=== PATIENT | male | born 2000 | race Caucasian/White ===

== ENCOUNTER 2025-03-30 23:19 | Emergency (ER) | payer SELFPAY ==
[2025-03-30] MEDS: Ziprasidone IM 20 MG/ML VIAL IM (23:28)
[2025-03-30 23:30] VITALS: BP 125/70; PULSE 113; RESP 16; TEMP 36.6; O2SAT 100; BMI 21.1
[2025-03-31 00:19] LABS: Absolute Lymphocyte Count 1.09 X10^3/uL (0.83-4.51); Absolute Neutrophil Count 9.5 X10^3/uL (2.0-7.7); Basophil# 0.01 X10^3/uL; Basophil% 0.1 % (0-1); Eosinophil# 0.02 X10^3/uL; Eosinophils% 0.2 % (0-5); Hematocrit 40.6 % (40-54); Lymphocyte # 1.09 X10^3/ul (0.83-4.51); Lymphocyte % 9.3 % (19-41); Mean Corp Hgb Conc 34.5 g/dL (32-36); Mean Corpuscular Hgb 30.8 pg (27.0-32.0); Mean Corpuscular Volume 89.4 fL (80-94); Mean Platelet Vol. 9.9 fl (6.2-12.0); Monocyte# 1.04 X10^3/uL; Monocyte% 8.9 % (0-10); NRBC Flagged by Analyzer 0 % (0-5); Neutrophil % 81.2 % (47-70); Platelet Count 263 K/mm3 (150-450); RBC Distribution Width CV 12.5 % (11.6-14.6); RBC Distribution Width SD 41.1 fl (35.1-43.9); Red Blood Count 4.54 M/mm3 (4.6-6.2); White Blood Count 11.7 K/mm3 (4.4-11.0)
[2025-03-31 00:20] VITALS: BP 124/80; PULSE 95; RESP 12; O2SAT 94
--- NOTE | 2025-03-31 00:30 | ED.RN ---
update given to pt mother, Kristen Gonzalez, after pt agreed to give information out. Mother wishes to be kept updated.
--- NOTE | 2025-03-31 00:32 | ED.RN ---
Pt brought in by Markos FRANCOIS and [place] . Pt was found with pants at ankles by ice cream shop with children near with stephania. Dressed in multiple layers during 80 degree heat. Pt was resisting PD, scratching and verbally aggressive. Brought to ED for mental health assessment. Pt refusing to comply with treatment. Restrained to bed after pt was verbally aggressive toward staff. Verbal order given by Dr. Koo, restraint documentation completed.
[2025-03-31 01:00] VITALS: BP 110/63; PULSE 79; RESP 18; O2SAT 95
[2025-03-31 01:16] LABS: Anion Gap 11 (5-15); BUN 10 mg/dL (4-19); BUN/Creat Ratio 12.2 RATIO (10-20); Calcium,Total 9.1 mg/dL (7.6-11.0); Carbon Dioxide 24.2 mmol/L (21.0-32.0); Chloride 103 mmol/L (98-108); Creatinine, Serum 0.78 mg/dL (0.70-1.20); EST Glomerular Filtration Rate 126 (>60); Estimated Creatinine Clearance 120.58 ml/min (50-250); Glucose 110 mg/dL (70-99); Potassium 3.3 mmol/L (3.3-5.1); Sodium Level 138 mmol/L (133-145)
[2025-03-31 01:18] LABS: Amphetamine Urine NEGATIVE (<1000 ng/mL); Barbiturate Urine NEGATIVE (< 200 ng/mL); Benzodiazepine Urine NEGATIVE (< 200 ng/mL); Buprenorphine Urine NEGATIVE (< 200 ng/mL); Cocaine Urine NEGATIVE (< 300 ng/mL); Fentanyl, Urine NEGATIVE; Methadone Urine NEGATIVE (< 300 ng/mL); Opiates Urine NEGATIVE (< 300 ng/mL); Oxycodone, Urine NEGATIVE (< 100 ng/mL); PCP Urine NEGATIVE (< 25 ng/mL); THC Urine PRESUMPTIVE POSITIVE (< 50 ng/mL)
[2025-03-31 01:19] LABS: Alcohol, Blood (Medical)-Serum < 10.1 mg/dL (<=10.0)
--- NOTE | 2025-03-31 03:10 | EX.ED.DYSGE1 ---
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 Police state that they were called because the patient was seen standing across from an ice cream stand with his pants down by his ankles. The police state that the patient is well-known to them and and he is showing signs that he is not caring for himself or taking his medication. They state they reached out to the patient's father and the father reported that he is also made threats about hurting other people. Therefore at this time with his worsening behavior as well as the fact he is showing that he is unable to care for himself he was brought into the ER for evaluation. Upon arrival to the ER the patient is extremely agitated he is aggressive towards staff and police and he is not answering any questions. [facility] Medical History (Updated 03/31/25 @ 04:[address] Richar Koo, DO) History of psychiatric hospitalization History of suicidal ideation Substance abuse History of schizophrenia Home Medications ?Medication ?Instructions ?Recorded ?Last Taken ?Type NK 03/30/25 Unknown History Allergy/AdvReac Type Severity Reaction Status Date / Time No Known Allergies Allergy Verified 03/30/25 23:21 Social History Smoking Status: Unknown if ever smoked ROS ROS ED Review of Systems ROS Unobtainable: due to mental status and other Details: Patient is uncooperative and refusing to answer any question and therefore review of systems cannot be obtained EXAM Physical Exam Const Vital Signs: 03/30/25 23:30 03/31/25 00:20 03/31/25 01:00 Temperature 97.8 F Temperature Source Temporal Pulse Rate 113 H 95 79 Respiratory Rate 16 12 18 Blood Pressure 125/70 H 124/80 H 110/63 Blood Pressure Mean 88 94 78 Pulse Ox 100 94 95 Oxygen Delivery Method Room Air Room Air Room Air Positive well developed and unkempt Constitutional Narrative: Patient is unkempt General Appearance ED: unkempt and well developed; Negative for pallor HEENT HEENT Narrative: Normocephalic atraumatic Eyes PERRL and EOMs intact bilaterally General Eye ED: Negative for scleral icterus Neck supple Neck Narrative: No nuchal rigidity or meningeal signs Chest Wall palpation of chest normal Resp normal respiratory effort and clear to auscultation bilaterally Resp Narrative: No nasal flaring tachypnea or retractions or accessory muscle use Cardio regular rhythm Rate: tachycardic GI normal to inspection, nondistended, normoactive bowel sounds, non-tender, non-distended and no masses GI Narrative: No voluntary guarding rigidity or pulsatile mass Auscultation: normoactive bowel sounds Palpation: soft Extremity normal to inspection Extremity Narrative: No obvious bony deformity or joint effusion No peripheral edema noted Neuro CN's II-XII intact bilaterally Neuro Narrative: Patient is uncooperative with exam but he is awake and alert without obvious focal neurologic deficit and is moving all extremities. Sensorium / Orientation: alert Psych Psych Narrative: Patient is unkempt. He is also aggressive attempting to scratch and harm staff Appearance: unkempt Skin no rashes or lesions noted and no wounds General Skin Exam: Negative for jaundice or pallor MDM MDM MDM Narrative Medical decision making narrative: Patient was brought in by police and EMS secondary to bizarre behavior coupled by physical exam showing he is not caring for himself. Once father also reported that he has made statements about harming other individuals police felt that hospitalization would be the patient's safest option. Upon arrival the patient is aggressive and combative and trying to harm staff. He also would not cooperate with exam or answer question. Therefore he was given 20 mg of IM Geodon. The patient has not required any further sedation/chemical restraint throughout the night. Based on the patient's known history of schizophrenia the fact he is not taking his medication and now is showing findings that he is not caring for himself and has also potential homicidal ideations I felt his best plan of care would be inpatient psychiatric treatment. Therefore the patient was pink slipped and he was evaluated by psychiatry/crisis center. They agree that hospitalization would be necessary at this time. The patient's medical workup reveals no clinically significant findings. The patient is hemodynamically stable and medically cleared for transfer/placement to a psychiatric center. At this time he is still waiting on acceptance. Therefore he will be signed out to the day physician Dr. Knox. Lab Data Attestation: I reviewed the patient's lab results. Labs: Laboratory Results - last 24 hr 03/30/25 03/30/25 00:10 00:12 WBC 11.7 H RBC 4.54 L Hgb 14.0 Hct 40.6 MCV 89.4 MCH 30.8 MCHC 34.5 RDW Std Deviation 41.1 RDW Coeff of Romulo 12.5 Plt Count 263 MPV 9.9 Immature Gran % (Auto) 0.300 Neut % (Auto) 81.2 H Lymph % (Auto) 9.3 L Bertie % (Auto) 8.9 Eos % (Auto) 0.2 Baso % (Auto) 0.1 Absolute Neuts (auto) 9.5 H Absolute Lymphs (auto) 1.09 Nucleated RBC % 0 Sodium 138 Potassium 3.3 Chloride 103 Carbon Dioxide 24.2 Anion Gap 11 BUN 10 Creatinine 0.78 Estim Creat Clear Calc 120.58 Est GFR (MDRD) Non-Af 126 BUN/Creatinine Ratio 12.2 Glucose 110 H Calcium 9.1 Urine Opiates Screen NEGATIVE U Buprenorphine Qual NEGATIVE Ur Oxycodone Screen NEGATIVE Urine Methadone Screen NEGATIVE Urine Fentanyl Screen NEGATIVE Ur Barbiturates Screen NEGATIVE Ur Phencyclidine Scrn NEGATIVE Ur Amphetamines Screen NEGATIVE U Benzodiazepines Scrn NEGATIVE Urine Cocaine Screen NEGATIVE U Cannabinoids Screen PRESUMPTIVE POSITIVE Ethyl Alcohol < 10.1 Management Discussion w/another healthcare provider: ornamental metal worker helper/Case management and Behavioral health Discharge Plan Triage Chief Complaint: Mental Health ED Provider: Richar Koo Dx/Rx/DC Orders Clinical Impression: Schizophrenia, Unable to care for self, Polysubstance abuse Prescriptions: No Action NK Primary Care Provider: Care Physician,No Primary Referrals: Care Physician,No Primary [Primary Care Provider] - Print Language: Swiss Disposition Disposition: Psychiatric Hospital or Unit
--- NOTE | 2025-03-31 04:01 | PCA ---
PT PENDING [facility] DUE TO NO INS. [facility] TO LOOK AT CASE IN AM DURING DAYSHIFT HRS.
--- NOTE | 2025-03-31 06:27 | EKG12_ITS ---
Test Reason : PLACEMENT Blood Pressure : */* mmHG Vent. Rate : 85 BPM Atrial Rate : 85 BPM P-R Int : 140 ms QRS Dur : 90 ms QT Int : 348 ms P-R-T Axes : 81 75 66 degrees QTcB Int : 414 ms Normal sinus rhythm Normal ECG Confirmed by JORGE MARTÍNEZ, YOGESH ([id number]), editor trade journal CARLOS WRIGHT ([id number]) on 04/03/2025 8:44:43 AM Referred By: Confirmed By: YOGESH PATEL MD
--- NOTE | 2025-03-31 07:19 | ED.RN ---
[facility] CALLED WITH ACCEPTANCE FOR PATIENT AT 0715. NOW WAITING ON BED. HOPEFULLY LATER TODAY, AFTER DISCHARGES
[2025-03-31 08:45] VITALS: BP 103/60; PULSE 70; RESP 16; TEMP 36.8; O2SAT 98
--- NOTE | 2025-03-31 08:48 | ED.RN ---
RECEIVED A CALL FROM [facility] ABOUT PATIENTS BED ASSIGNMENT. THIS CERTIFIED PROSTHETIST/ORTHOTIST CALLED TO SET UP A RIDE FOR PATIENT. SOON AFTER PHYSICIANS TRANSPORT WAS SET UP THIS CERTIFIED PROSTHETIST/ORTHOTIST RECEIVED A CALL FROM [facility] ABOUT A PROBLEM WITH THE ROOM AND THEY HAD TO HOLD THE BED ASSIGNMENT FOR THE PATIENT. THEY SAID THAT THEY ARE STILL TRYING TO GET A BED FOR HIM TODAY, BUT RIGHT NOW, NO OTHERS ARE AVAILABLE. AFTER, THIS CERTIFIED PROSTHETIST/ORTHOTIST CALLED PHYSICIANS BACK AND PUT A HOLD ON THE RIDE. OF NOW, WAITING ON A BED AT [facility]
--- NOTE | 2025-03-31 15:10 | ED.RN ---
HAYLEE FROM [facility] THIS FIBROUS PLASTERER SPOKE TO ABOUT A BED UPDATE FOR THE PATIENT. HE SAID THERE WERE NO BED AVAILABILITY. THE BED WE HAD EARLIER THIS MORNING WAS CHANGED INTO A PRIVATE ROOM FOR A CRITICAL PATIENT OF THEIR OWN. THERE WILL BE NO DISCHARGES ON THE WEEKEND AND TO TRY CALLING BACK ON THURSDAY. HE SAID, ALTHOUGH THERE AREN'T A LOT OF DISCHARGES ON THURSDAY, BUT THAT'S WHERE YOUR BEST BET IT.
[2025-03-31 17:00] VITALS: BP 107/61; PULSE 73; RESP 14; TEMP 36.8; O2SAT 100
--- NOTE | 2025-03-31 17:22 | CM.ED ---
Social Work SW spoke with Altagracia from [facility] who stated she would meet with patient in attempt to get Medicaid application completed. SW spoke with patient who agreed to meet with Altagracia. Altagracia was able to get application submitted, confirmation number is [id number], [facility] # [id number]. SW spoke with [facility] as [facility] is being told that [place] likely will not have a bed until Thursday at the earliest. SW asked crisis if there were any additional options for placement. Stiven from crisis stated he would make some phone calls and get back with SW. Rosemary Liu, PROVISIONING ANALYST, VIDEO GAME PROGRAMMER
[2025-04-01 01:00] VITALS: BP 124/68; PULSE 64; RESP 12; TEMP 37.1; O2SAT 99
[2025-04-01 09:00] VITALS: BP 117/78; PULSE 73; RESP 16; O2SAT 98
[2025-04-01 17:00] VITALS: BP 128/78; PULSE 90; RESP 18; O2SAT 98
--- NOTE | 2025-04-01 18:24 | ED.RN ---
Counseling center called and gave update about pt. He is next in line. Made the counseling center aware that we are aware [facility] doesn't accept admissions on the weekend. They will keep up updated if anything changes.
--- NOTE | 2025-04-01 19:35 | CM.ED ---
Social Work: abatement worker received call from Evelin with Crisis who stated patient is next on list to [facility]. Stiven from [facility] will be here this evening to complete the 24 hour required assessment with patient. No other information at this time. Erica Bertrand, FINANCIAL INSTITUTION BRANCH MANAGER, TOOL DISPATCHER
[2025-04-02 01:00] VITALS: BP 119/95; PULSE 70; RESP 16; TEMP 36.8; O2SAT 99
--- NOTE | 2025-04-02 07:50 | PCA ---
[facility] CALLED WITH A BED- UNIT C2 @ [address] ETA [id number]
--- NOTE | 2025-04-02 10:06 | ED.RN ---
THIS NURSE ATTEMPTED TO CALL REPORT FOR PT IN ROUTE. ACCEPTING FACILITY DID NOT ANSWER.
== END 2025-04-02 09:00 ==
PROVIDERS: Emergency Provider Emergency Medicine; Visit Provider Emergency Medicine
DX: F20.9 Schizophrenia, unspecified (principal); F19.19 Other psychoactive substance abuse with unspecified psychoactive substance-induced disorder
CPT/HCPCS: 80048; 80307; 82077; 85025; 93005; 96372; 99285; J3486